=== PATIENT | male | born 1945 | race Caucasian/White ===

== ENCOUNTER 2018-07-02 06:52 | Observation (INO) | payer MEDICARE, OTHER ==
--- NOTE | 2018-07-02 07:23 | ED PDOC ---
Upper Extremity Pain/Injury History Per: Patient Additional Complaint(s): 72M p/w laceration 2 days ago while cutting pears involving RIGHT distal phalanx with development of pain and swelling now involving the first 3 MCPs with edema and erythema. The erythema extending into palmar aspect. He denies any SOB, chest pain, fevers, chills, but has LROM in 1 phalanx. PMD: [place] PMH: Barretts Esophagus <Verónica Shetty - Last Filed: 07/02/18 09:04> <Cr Griggs - Last Filed: 07/02/18 09:26> Time Seen by Provider: 07/02/18 07:07 Supervising Attending Note - Supervising Attending Note The Documented history was done by the: Physician Seismic Observer The documented physical exam was done by the: Physician Seismic Observer The documented procedures were done by the: Physician Seismic Observer - Attestation: I have personally seen and examined this patient.: Yes I have fully participated in the care of the patient.: Yes I have reviewed all pertinent clinical information: Yes - Notes: Notes:: Finger pain post laceration 2 days ago. Limited movement of finger. <Cr Griggs - Last Filed: 07/02/18 09:26> Past Medical History - Family History Family History: States: No Known Family Hx <Verónica Shetty - Last Filed: 07/02/18 09:04> Vital Signs: Last Vital Signs Temp 98.6 F 07/02/18 07:28 Pulse 88 07/02/18 07:28 Resp 18 07/02/18 07:28 BP 158/97 H 07/02/18 07:28 Pulse Ox 99 07/02/18 07:28 <Cr Griggs - Last Filed: 07/02/18 09:26> - Allergies Allergies/Adverse Reactions: Allergies Allergy/AdvReac Type Severity Reaction Status Date / Time No Known Allergies Allergy Verified 07/02/18 07:34 Review of Systems ROS Statement: Except As Marked, All Systems Reviewed And Found Negative Constitutional: Negative for: Fever, Chills Musculoskeletal: Positive for: Hand Pain (Rt index finger with LROM, PIP/MCP edema/erythema as well as index/middle/ring MCP erythema and swelling) <Verónica Shetty - Last Filed: 07/02/18 09:04> Physical Exam - Reviewed Vital Signs Reviewed: Yes - Physical Exam Appears: Positive for: Non-toxic Head Exam: Positive for: ATRAUMATIC, NORMAL INSPECTION Skin: Positive for: Normal Color, Warm, Dry Eye Exam: Positive for: Normal appearance Neck: Positive for: Supple Cardiovascular/Chest: Positive for: Regular Rate, Rhythm Respiratory: Positive for: Normal Breath Sounds. Negative for: Rales, Rhonchi, Wheezing Pulses-Radial (L): 2+ Pulses-Radial (R): 2+ Gastrointestinal/Abdominal: Positive for: Bowel Sounds, Soft. Negative for: Tenderness Extremity: Positive for: Tenderness (Rt second MCP/PIP ), Capillary Refill (<3s), Swelling (Rt second PIP/MCP, 3rd MCP, 4th MCP and erythema into palmar). Negative for: Normal ROM (LROM in Rt second phalanx) Neurologic/Psych: Positive for: global process owner II-XII <Verónica Shetty - Last Filed: 07/02/18 09:04> - Physical Exam Cardiovascular/Chest: Positive for: Regular Rate, Rhythm Respiratory: Positive for: Normal Breath Sounds Pulses-Radial (L): 2+ Pulses-Radial (R): 2+ Extremity: Positive for: Tenderness <Cr Griggs - Last Filed: 07/02/18 09:26> - Laboratory Results Result Diagrams: 07/02/18 07:50 07/02/18 07:50 - Radiology X-Ray: Read By Radiologist (Soft tissue swelling in Rt index finger) - Progress Condition: Re-examined, Improving,but remains with symptoms - Physician Consult Information Time Consulting Physican Contacted: 08:31 Physician Contacted: Jade Bautista Outcome Of Conversation: Admit for IV abx (Unasyn), hand elevation, Surgery Consult 0850: Director Of Pharmacy saw patient. <Verónica Shetty - Last Filed: 07/02/18 09:04> - Laboratory Results Result Diagrams: 07/02/18 07:50 07/02/18 07:50 Interpretation Of Abn Labs: no acute - Progress ED Course And Treament: 924: Stable. AAOx3. Dr. Bautista saw images via text of x-rays and finger. Wants admit. Spoke with Dr. Fisher who will admit. <Cr Griggs - Last Filed: 07/02/18 09:26> Medical Decision Making Medical Decision Making: Possible tenosynovitis - Rt hand 3V - IV Clindamycin - CBC, CMP, BCx, VBG, - Tdap, Toradol - Hand Consult - 1L IVF - Consented patient for pictures/video of hand to discuss with financial analysis consultant. 0821 - CMP all WNL - CBC no leukocytosis/anemia, abs NEUTs 7.7H - Spoke with Hand Specialist and surgical scrub technician <Verónica Shetty - Last Filed: 07/02/18 09:04> Disposition - Disposition Disposition Time: 09:05 <Verónica Shetty - Last Filed: 07/02/18 09:04> <Cr Griggs - Last Filed: 07/02/18 09:26> - Clinical Impression Clinical Impression: Tenosynovitis of finger and hand - Disposition Condition: FAIR
[2018-07-02] MEDS ORDERED: Clindamycin 600mg/50ml NS 600 MG/50 ML BAG IVPB ONE (07:35)
[2018-07-02] MEDS ORDERED: Sodium Chloride 0.9% 1,000 ML IV STA (07:35)
[2018-07-02 08:04] LABS: BASO # 0.1 K/uL (0.0-0.2); BASO % 0.6 % (0.0-2.0); EOS # 0.1 K/uL (0.0-0.7); EOS % 0.8 % (0.0-4.0); HEMOGLOBIN 14.7 g/dL (12.0-18.0); LYMPH # 1.6 K/uL (1.0-4.3); LYMPH % 15.6 % (20.0-40.0); MEAN CELL VOLUME 88.5 fl (80.0-94.0); MEAN CORPUSCULAR HEMOGLOBIN 30.5 pg (27.0-31.0); MEAN CORPUSCULAR HGB CONC 34.4 g/dL (33.0-37.0); MEAN PLATELET VOLUME 8.6 fl (7.2-11.7); MONO # 0.9 K/uL (0.0-0.8); MONO % 8.3 % (0.0-10.0); NEUT # 7.7 K/uL (1.8-7.0); NEUT % 74.7 % (50.0-75.0); NRBC % 0.1 % (0.0-0.0); RBC 4.83 Mil/uL (4.40-5.90); RED CELL DISTRIBUTION WIDTH 13.2 % (11.5-14.5); WHITE BLOOD COUNT 10.4 K/uL (4.8-10.8)
[2018-07-02] MEDS ORDERED: Tdap Vaccine 0.5 ml Vial (10-64 yrs) IM ONE ×2 (08:10→09:49)
[2018-07-02 08:20] LABS: ALB/GLOB RATIO 1.3 (1.0-2.1); ALBUMIN 4.4 g/dL (3.5-5.0); ALT/SGPT 27 U/L (21-72); AST/SGOT 27 U/L (17-59); BLOOD UREA NITROGEN 14 mg/dl (9-20); CALCIUM 9.4 mg/dL (8.4-10.2); GFR NON-AFRICAN AMERICAN > 60
--- NOTE | 2018-07-02 08:36 | RAD ---
PROCEDURE: Right Hand Radiographs. HISTORY: FINGER INFECTION COMPARISON: None. FINDINGS: BONES: There is diffuse bone demineralization. There is no acute fracture or bone destruction. 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 SOFT TISSUES: There is mild diffuse soft tissue swelling in the index finger. OTHER FINDINGS: None. IMPRESSION: No acute fracture, dislocation or radiopaque foreign body. Diffuse soft tissue swelling in the index finger.
--- NOTE | 2018-07-02 09:46 | CP.PCM.CON ---
Addendum entered and electronically signed by Tegan Garduno DO 07/03/18 06:46: Addendum entered and electronically signed by Jade Bautista MD 07/02/18 21:36 : Patient seen tonight after 3 doses of IV antibiotics. The swelling is still present to the index finger on the right hand, but the rest of the fingers are minimally swollen. There is some tenderness to the MCP and PIP joint with both flexion and extension and with grind test. No pain out of proportion with finger extension, no fusiform swelling. Erythema is mild. Laceration healed to the radial boarder at the mid middle phalanx level. Unlikely to develop tenosynovitis, but will follow. Will re-examine tomorrow afternoon. Would recommend adding Toradol and warm compresses. Original Note: History of Present Illness - History of Present Illness History of Present Illness: Hand Surgery consult note for Dr. Bautista Consulted for: right index finger tenosynovitis Patient is a 72 yr old male with PMH GERD and BPH who presents to [facility] ED 2 days after sustaining a small 0.5 cm laceration to his right index finger at the level of the DIP joint on the lateral aspect of the finger while using a paring knife to cut fruit. He initially cleaned the wound and it did not appear to him to need stitches. The wound has now closed. He states that over the past 2 days the finger has become increasingly painful with decreased ROM and exten. He otherwise denies f/c, n/v, CAZARES, CP, SOB, abdominal pain, arm pain or pain in wrist or other fingers. PMH: GERD, BPH PSH: denies All: nkda Review of Systems - Review of Systems All systems: reviewed and no additional remarkable complaints except (as per HPI) Past Patient History - Past Social History Smoking Status: Never Smoked - PSYCHIATRIC Hx Substance Use: No - ANESTHESIA Hx Anesthesia: No Meds Allergies/Adverse Reactions: Allergies Allergy/AdvReac Type Severity Reaction Status Date / Time No Known Allergies Allergy Verified 07/02/18 07:34 - Medications Medications: Current Medications Ampicillin Sodium/Sulbactam (Sodium 1.5 gm/ Sodium Chloride) 100 mls @ 100 mls/hr IVPB ONCE ONE; Protocol Stop: 07/02/18 09:59 Physical Exam - Constitutional Appears: Well, Non-toxic, No Acute Distress - Head Exam Head Exam: ATRAUMATIC, NORMOCEPHALIC - Eye Exam Eye Exam: EOMI - ENT Exam ENT Exam: Mucous Membranes Moist - Respiratory Exam Respiratory Exam: NORMAL BREATHING PATTERN - Cardiovascular Exam Cardiovascular Exam: REGULAR RHYTHM - GI/Abdominal Exam GI & Abdominal Exam: Soft. absent: Guarding, Tenderness - Extremities Exam Extremities exam: Positive for: pedal pulses present. Negative for: calf tenderness, pedal edema Additional comments: right index finger edematous and tender with erythema and warmth extending 2cm into the palm, small closed cut on the lateral DIP joint of the index finger, decreased ROM in index finger and pain with ROM, good capillary refil and intact sensation in the finger - Neurological Exam Neurological exam: Alert, Oriented x3 - Psychiatric Exam Psychiatric exam: Normal Affect, Normal Mood - Skin Skin Exam: Erythema, Warm Additional comments: see extremity exam Results - Vital Signs Recent Vital Signs: Last Vital Signs Temp 98.6 F 07/02/18 07:28 Pulse 88 07/02/18 07:28 Resp 18 07/02/18 07:28 BP 158/97 H 07/02/18 07:28 Pulse Ox 99 07/02/18 07:28 - Labs Result Diagrams: 07/02/18 07:50 07/02/18 07:50 Labs: Laboratory Results - last 24 hr 07/02/18 07/02/18 07:50 07:50 WBC 10.4 RBC 4.83 Hgb 14.7 Hct 42.8 MCV 88.5 MCH 30.5 MCHC 34.4 RDW 13.2 Plt Count 234 MPV 8.6 Neut % (Auto) 74.7 Lymph % (Auto) 15.6 L [place] % (Auto) 8.3 Eos % (Auto) 0.8 Baso % (Auto) 0.6 Neut # (Auto) 7.7 H Lymph # (Auto) 1.6 [place] # (Auto) 0.9 H Eos # (Auto) 0.1 Baso # (Auto) 0.1 Sodium 141 Potassium 4.0 Chloride 104 Carbon Dioxide 24 Anion Gap 17 BUN 14 Creatinine 0.8 Est GFR ( Amer) > 60 Est GFR (Non-Af Amer) > 60 Random Glucose 89 Calcium 9.4 Total Bilirubin 0.9 AST 27 ALT 27 Alkaline Phosphatase 60 Total Protein 7.8 Albumin 4.4 Globulin 3.4 Albumin/Globulin Ratio 1.3 Assessment & Plan - Assessment and Plan (Free Text) Assessment: 72 yr old male with history of recent injury presents with likely tenosynovitis of right index finger Plan: place patient on unasyn for abx keep hand elevated remove rings as necessary continue all home medications all further recs per Dr. Michele Garduno, PGY 1 - Date & Time Date: 07/02/18 Time: 09:00
[2018-07-02 10:10] LABS: VENOUS BLOOD GAS BASE EXCESS 2.3 mmol/L (0.0-2.0); VENOUS BLOOD GAS PCO2 39 mmHg (40-60); VENOUS BLOOD GAS PO2 54 mm/Hg (30-55); VENOUS BLOOD PH 7.44 (7.32-7.43)
--- NOTE | 2018-07-02 11:58 | CP.PCM.HP ---
History of Present Illness - History of Present Illness History of Present Illness: 72 yo male with history of GERD and BPH presented to the ER with pain and swelling of the right index finger extending to its base and palm. He claimed that he accidentally stabbed himself while cutting pears 2 days ago. He noticed his index finger started swelling and was unable to flex later in the day. The next day the swelling extended to the base and palm and started throbbing. He denied fever or chills. He sought consultation to the ER because the redness and swelling was extending and he was unable to make a block paver of the affected hand. Present on Admission - Present on Admission Any Indicators Present on Admission: No History of DVT/PE: No History of Uncontrolled Diabetes: No Urinary Catheter: No Decubitus Ulcer Present: No Review of Systems - Review of Systems All systems: reviewed and no additional remarkable complaints except (aside from those mentioned above, 12 point system review were negative by me) Past Patient History - Tetanus Immunizations Tetanus Immunization: Unknown - Past Medical History & Family History Past Medical History?: Yes Past Family History: Reviewed and not pertinent - Past Social History Smoking Status: Never Smoked Chewing Tobacco Use: No Cigar Use: No Alcohol: Occasional Drugs: Denies Home Situation {Lives}: With Family - GASTROINTESTINAL Hx Gastroesophageal Reflux: Yes - GENITOURINARY/GYNECOLOGICAL Hx Prostate Problems: Yes - PSYCHIATRIC Hx Substance Use: No - ANESTHESIA Hx Anesthesia: No Meds Allergies/Adverse Reactions: Allergies Allergy/AdvReac Type Severity Reaction Status Date / Time No Known Allergies Allergy Verified 07/02/18 07:34 Physical Exam - Constitutional Appears: No Acute Distress - Head Exam Head Exam: ATRAUMATIC - Eye Exam Eye Exam: absent: Scleral icterus - ENT Exam ENT Exam: Mucous Membranes Moist - Neck Exam Neck exam: Negative for: Meningismus - Respiratory Exam Respiratory Exam: absent: Rales, Rhonchi, Wheezes, Respiratory Distress - Cardiovascular Exam Cardiovascular Exam: REGULAR RHYTHM, +S1, +S2 - GI/Abdominal Exam GI & Abdominal Exam: Soft. absent: Tenderness - Rectal Exam Rectal Exam: Deferred - Extremities Exam Extremities exam: Positive for: tenderness (tenderness on right index finger and vicinity). Negative for: full ROM (right fingers with limited ROM particularly the index because of swelling) - Back Exam Back exam: NORMAL INSPECTION - Neurological Exam Neurological exam: Alert, Oriented x3 - Psychiatric Exam Psychiatric exam: Normal Affect - Skin Skin Exam: Dry, Intact Results - Vital Signs Recent Vital Signs: Last Vital Signs Temp 98.6 F 07/02/18 10:10 Pulse 80 07/02/18 10:10 Resp 18 07/02/18 10:10 BP 145/76 07/02/18 10:10 Pulse Ox 100 07/02/18 10:10 - Labs Result Diagrams: 07/02/18 07:50 07/02/18 07:50 Labs: Laboratory Results - last 24 hr 07/02/18 07/02/18 07/02/18 07:34 07:50 07:50 WBC 10.4 RBC 4.83 Hgb 14.7 Hct 42.8 MCV 88.5 MCH 30.5 MCHC 34.4 RDW 13.2 Plt Count 234 MPV 8.6 Neut % (Auto) 74.7 Lymph % (Auto) 15.6 L [place] % (Auto) 8.3 Eos % (Auto) 0.8 Baso % (Auto) 0.6 Neut # (Auto) 7.7 H Lymph # (Auto) 1.6 [place] # (Auto) 0.9 H Eos # (Auto) 0.1 Baso # (Auto) 0.1 pO2 54 VBG pH 7.44 H VBG pCO2 39 L VBG HCO3 26.5 VBG Total CO2 27.7 VBG O2 Sat (Calc) 93.4 H VBG Base Excess 2.3 H VBG Potassium 3.8 Sodium 139.0 141 Chloride 109.0 H 104 Glucose 83 Lactate 0.8 FiO2 21.0 Potassium 4.0 Carbon Dioxide 24 Anion Gap 17 BUN 14 Creatinine 0.8 Est GFR ( Amer) > 60 Est GFR (Non-Af Amer) > 60 Random Glucose 89 Calcium 9.4 Total Bilirubin 0.9 AST 27 ALT 27 Alkaline Phosphatase 60 Total Protein 7.8 Albumin 4.4 Globulin 3.4 Albumin/Globulin Ratio 1.3 Venous Blood Potassium 3.8 Assessment & Plan - Assessment and Plan (Free Text) Assessment: 72 yo male with history of GERD and BPH presented to the ER with pain and swelling of the right index finger extending to its base and palm. He claimed that he accidentally stabbed himself while cutting pears 2 days ago. He noticed his index finger started swelling and was unable to flex later in the day. The next day the swelling extended to the base and palm and started throbbing. He denied fever or chills. He sought consultation to the ER because the redness and swelling was extending and he was unable to make a block paver of the affected hand. 1. Tenosynovitis, Right Index keep right hand elevated continue Unasyn 1.5gm IV q 6hrs hand surgeon on consult
[2018-07-02] MEDS: Pantoprazole 40 mg EC Tab PO SCH (14:07)
[2018-07-03 06:29] LABS: BASO % 0.6 % (0.0-2.0); EOS # 0.2 K/uL (0.0-0.7); EOS % 2.4 % (0.0-4.0); HEMOGLOBIN 13.5 g/dL (12.0-18.0); LYMPH # 1.7 K/uL (1.0-4.3); LYMPH % 21.9 % (20.0-40.0); MEAN CORPUSCULAR HGB CONC 33.4 g/dL (33.0-37.0); MEAN PLATELET VOLUME 8.8 fl (7.2-11.7); MONO # 0.8 K/uL (0.0-0.8); MONO % 10.3 % (0.0-10.0); NEUT # 5.1 K/uL (1.8-7.0); NEUT % 64.8 % (50.0-75.0); RBC 4.51 Mil/uL (4.40-5.90); RED CELL DISTRIBUTION WIDTH 13.1 % (11.5-14.5); WHITE BLOOD COUNT 7.8 K/uL (4.8-10.8)
[2018-07-03 06:31] LABS: INR 1.2; PROTHROMBIN TIME 13.7 Seconds (9.8-13.1)
[2018-07-03 06:49] LABS: BLOOD UREA NITROGEN 16 mg/dl (9-20); CALCIUM 8.8 mg/dL (8.4-10.2); GFR NON-AFRICAN AMERICAN > 60
--- NOTE | 2018-07-03 08:49 | CP.PCM.PN ---
Addendum entered and electronically signed by Jade Bautista MD 07/03/18 17:18: Patient is doing much better after the Toradol and warm compresses. He has very minimal pain and there is still a slight pink discoloration to the volar palm at the index finger, but no pain with passive extension. Not suspicious of tenosynovitis and no need for surgical drainage. He should be able to go home with 5 day of Augmentin. He should continue with the warm compreses for comfort at home. Follow up with me next week. We discussed taking Motrin or Alleve instead of Tylenol for the swelling. The swelling and stiffness to the joints may take 2-3 weeks to resolve and he understands that it will take time but he should use the hand as tolerated without restrictions. Original Note: Subjective - Date & Time of Evaluation Date of Evaluation: 07/03/18 Time of Evaluation: 08:47 - Subjective Subjective: Surgery Pt seen and examined. No acute events/ Doing warm soak. ROM improved. Pain improved. No complaints. Objective - Vital Signs/Intake and Output Vital Signs (last 24 hours): Temp Pulse Resp BP Pulse Ox 98.5 F 75 20 165/81 H 97 07/03/18 08:38 07/03/18 08:38 07/03/18 08:38 07/03/18 08:38 07/03/18 08:38 - Medications Medications: Current Medications Famotidine (Pepcid) 20 mg PO BID [facility] Last Admin: 07/02/18 17:09 Dose: 20 mg Ampicillin Sodium/Sulbactam (Sodium 1.5 gm/ Sodium Chloride) 100 mls @ 100 mls/hr IVPB Q6 [facility]; Protocol Last Admin: 07/03/18 04:24 Dose: 100 mls/hr Ibuprofen (Motrin Tab) 400 mg PO Q6H PRN PRN Reason: Pain, moderate (4-7) Last Admin: 07/03/18 04:29 Dose: 400 mg Ketorolac Tromethamine (Toradol) 10 mg PO 0000,0600,1200,1800 [facility] Last Admin: 07/03/18 06:03 Dose: 10 mg Pantoprazole Sodium (Protonix Ec Tab) 40 mg PO DAILY [facility] Last Admin: 07/02/18 14:07 Dose: 40 mg Sucralfate (Carafate Tab) 1 gm PO TID [facility] Last Admin: 07/02/18 17:10 Dose: 1 gm Tamsulosin HCl (Flomax) 0.4 mg PO BID [facility] Last Admin: 07/02/18 17:10 Dose: 0.4 mg - Labs Labs: 07/03/18 05:40 07/03/18 05:40 PT 13.7 Seconds (9.8-13.1) H 07/03/18 05:40 INR 1.2 07/03/18 05:40 APTT 32.0 Seconds (25.6-37.1) 07/03/18 05:40 - Constitutional Appears: No Acute Distress - Head Exam Head Exam: ATRAUMATIC, NORMAL INSPECTION, NORMOCEPHALIC - Eye Exam Eye Exam: EOMI, Normal appearance, PERRL Pupil Exam: NORMAL ACCOMODATION, PERRL - ENT Exam ENT Exam: Mucous Membranes Moist, Normal Exam - Neck Exam Neck Exam: Full ROM, Normal Inspection. absent: Lymphadenopathy - Respiratory Exam Respiratory Exam: NORMAL BREATHING PATTERN - Cardiovascular Exam Cardiovascular Exam: REGULAR RHYTHM - GI/Abdominal Exam GI & Abdominal Exam: Soft, Normal Bowel Sounds. absent: Distended, Tenderness - Extremities Exam Extremities Exam: absent: Normal Inspection Additional comments: mild swelling is present to the index finger on the right hand, but the rest of the fingers are minimally swollen. There is some tenderness to the MCP and PIP joint with both flexion and extension and with grind test. No pain out of proportion with finger extension, no fusiform swelling. Erythema is mild. Laceration healed to the radial boarder at the mid middle phalanx level. - Back Exam Back Exam: NORMAL INSPECTION - Neurological Exam Neurological Exam: Alert, Awake, CN II-XII Intact, Normal Gait, Oriented x3 - Psychiatric Exam Psychiatric exam: Normal Affect, Normal Mood - Skin Skin Exam: Dry, Erythema, Intact, Warm Assessment and Plan - Assessment and Plan (Free Text) Assessment: R index finger swelling, cellulitis unlikely tenosynovitis -No surgial intervention -Warm compress -Toradol for pain and swelling EZ Bautista
[2018-07-03] MEDS: Pantoprazole 40 mg EC Tab PO SCH (09:03)
--- NOTE | 2018-07-03 09:13 | CP.PCM.PN ---
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 Patient denies fever, chills, N/V/D, headache, rash, abdominal pain or any other acute medical complain at this time. Objective - Vital Signs/Intake and Output Vital Signs (last 24 hours): Temp Pulse Resp BP Pulse Ox 98.5 F 75 20 165/81 H 97 07/03/18 08:38 07/03/18 08:38 07/03/18 08:38 07/03/18 08:38 07/03/18 08:38 - Medications Medications: Current Medications Famotidine (Pepcid) 20 mg PO BID [facility] Last Admin: 07/03/18 09:03 Dose: 20 mg Ampicillin Sodium/Sulbactam (Sodium 1.5 gm/ Sodium Chloride) 100 mls @ 100 mls/hr IVPB Q6 [facility]; Protocol Last Admin: 07/03/18 09:01 Dose: 100 mls/hr Ibuprofen (Motrin Tab) 400 mg PO Q6H PRN PRN Reason: Pain, moderate (4-7) Last Admin: 07/03/18 04:29 Dose: 400 mg Ketorolac Tromethamine (Toradol) 10 mg PO 0000,0600,1200,1800 [facility] Last Admin: 07/03/18 06:03 Dose: 10 mg Pantoprazole Sodium (Protonix Ec Tab) 40 mg PO DAILY [facility] Last Admin: 07/03/18 09:03 Dose: 40 mg Sucralfate (Carafate Tab) 1 gm PO TID [facility] Last Admin: 07/03/18 09:03 Dose: 1 gm Tamsulosin HCl (Flomax) 0.4 mg PO BID [facility] Last Admin: 07/03/18 09:03 Dose: 0.4 mg - Labs Labs: 07/03/18 05:40 07/03/18 05:40 PT 13.7 Seconds (9.8-13.1) H 07/03/18 05:40 INR 1.2 07/03/18 05:40 APTT 32.0 Seconds (25.6-37.1) 07/03/18 05:40 - Additional Findings Additional findings: - Constitutional Appears: No Acute Distress - Head Exam Head Exam: ATRAUMATIC, NORMOCEPHALIC - Eye Exam Eye Exam: EOMI, Normal appearance, PERRL Pupil Exam: EOMI, PERRL - ENT Exam ENT Exam: Mucous Membranes Moist, Normal Exam - Neck Exam Neck Exam: Full ROM, Supple, Normal Inspection. absent: Lymphadenopathy - Respiratory Exam Respiratory Exam: NORMAL BREATHING PATTERN - Cardiovascular Exam Cardiovascular Exam: REGULAR RHYTHM - GI/Abdominal Exam GI & Abdominal Exam: Soft, Normal Bowel Sounds. absent: Distended, Tenderness - Extremities Exam Extremities Exam: absent: Normal Inspection Additional comments: Right index finger with miild swelling that extend to the base of the finger minimally, with mild tenderness to palpation to the MCP joint. There is mild tenderness on ROM, no erythema noted. There is a laceration healing to the radial aspect of the right index finger. minimal function impairment of hand patents examiner. Back Exam Back Exam: NORMAL INSPECTION Assessment and Plan - Assessment and Plan (Free Text) Assessment: 72 yo male with history of GERD and BPH presented to the ER with pain and swelling of the right index finger extending to its base and palm, and diffic ulties with his hand patents examiner due to swelling and pain, evaluated and admitted with diagnosis of Tenosynovitis of the Right index finger. 1. Tenosynovitis, Right Index -keep right hand elevated -continue / Unasyn 1.5gm IV q 6hrs -hand surgeon on consult: Dr Bautista -Ketorolac 10 for inflammation, as per Dr Bautista hand Sx -Ibuprofen 400 PO Q6h PRN pain. -Warm compreses to affected area. 2.GERD -stable -continue home meds, Protonix 3.BPH -stable -Flomax 0.4 PO bid <Deja Gaona - Last Filed: 07/03/18 16:34> Objective - Vital Signs/Intake and Output Vital Signs (last 24 hours): Temp Pulse Resp BP Pulse Ox 98.5 F 75 20 165/81 H 97 07/03/18 08:38 07/03/18 08:38 07/03/18 08:38 07/03/18 08:38 07/03/18 08:38 - Medications Medications: Current Medications Famotidine (Pepcid) 20 mg PO BID [facility] Last Admin: 07/03/18 16:22 Dose: 20 mg Ampicillin Sodium/Sulbactam (Sodium 1.5 gm/ Sodium Chloride) 100 mls @ 100 mls/hr IVPB Q6 [facility]; Protocol Last Admin: 07/03/18 16:22 Dose: 100 mls/hr Ibuprofen (Motrin Tab) 400 mg PO Q6H PRN PRN Reason: Pain, moderate (4-7) Last Admin: 07/03/18 04:29 Dose: 400 mg Ketorolac Tromethamine (Toradol) 10 mg PO 0000,0600,1200,1800 [facility] Last Admin: 07/03/18 12:47 Dose: 10 mg Pantoprazole Sodium (Protonix Ec Tab) 40 mg PO DAILY [facility] Last Admin: 07/03/18 09:03 Dose: 40 mg Sucralfate (Carafate Tab) 1 gm PO TID [facility] Last Admin: 07/03/18 16:22 Dose: 1 gm Tamsulosin HCl (Flomax) 0.4 mg PO BID [facility] Last Admin: 07/03/18 16:22 Dose: 0.4 mg - Labs Labs: 07/03/18 05:40 07/03/18 05:40 PT 13.7 Seconds (9.8-13.1) H 07/03/18 05:40 INR 1.2 07/03/18 05:40 APTT 32.0 Seconds (25.6-37.1) 07/03/18 05:40 Attending/Attestation - Attestation I have personally seen and examined this patient.: Yes I have fully participated in the care of the patient.: Yes I have reviewed all pertinent clinical information, including history, physical exam and plan: Yes
--- NOTE | 2018-07-03 11:18 | CP.PCM.CON ---
Past Patient History - Tetanus Immunizations Tetanus Immunization: Unknown - Past Medical History & Family History Past Medical History?: Yes - Past Social History Smoking Status: Never Smoked - MUSCULOSKELETAL/RHEUMATOLOGICAL Hx Falls: No - GASTROINTESTINAL Hx Gastroesophageal Reflux: Yes - GENITOURINARY/GYNECOLOGICAL Hx Prostate Problems: Yes - PSYCHIATRIC Hx Substance Use: No - ANESTHESIA Hx Anesthesia: No Meds Allergies/Adverse Reactions: Allergies Allergy/AdvReac Type Severity Reaction Status Date / Time No Known Allergies Allergy Verified 07/02/18 07:34 - Medications Medications: Current Medications Famotidine (Pepcid) 20 mg PO BID [facility] Last Admin: 07/03/18 09:03 Dose: 20 mg Ampicillin Sodium/Sulbactam (Sodium 1.5 gm/ Sodium Chloride) 100 mls @ 100 mls/hr IVPB Q6 [facility]; Protocol Last Admin: 07/03/18 09:01 Dose: 100 mls/hr Ibuprofen (Motrin Tab) 400 mg PO Q6H PRN PRN Reason: Pain, moderate (4-7) Last Admin: 07/03/18 04:29 Dose: 400 mg Ketorolac Tromethamine (Toradol) 10 mg PO 0000,0600,1200,1800 [facility] Last Admin: 07/03/18 06:03 Dose: 10 mg Pantoprazole Sodium (Protonix Ec Tab) 40 mg PO DAILY [facility] Last Admin: 07/03/18 09:03 Dose: 40 mg Sucralfate (Carafate Tab) 1 gm PO TID [facility] Last Admin: 07/03/18 09:03 Dose: 1 gm Tamsulosin HCl (Flomax) 0.4 mg PO BID [facility] Last Admin: 07/03/18 09:03 Dose: 0.4 mg Results - Vital Signs Recent Vital Signs: Last Vital Signs Temp 98.5 F 07/03/18 08:38 Pulse 75 07/03/18 08:38 Resp 20 07/03/18 08:38 BP 165/81 H 07/03/18 08:38 Pulse Ox 97 07/03/18 08:38 - Labs Result Diagrams: 07/03/18 05:40 07/03/18 05:40 Labs: Laboratory Results - last 24 hr 07/03/18 07/03/18 07/03/18 05:40 05:40 05:40 WBC 7.8 RBC 4.51 Hgb 13.5 Hct 40.6 MCV 90.0 MCH 30.0 MCHC 33.4 RDW 13.1 Plt Count 205 MPV 8.8 Neut % (Auto) 64.8 Lymph % (Auto) 21.9 [place] % (Auto) 10.3 H Eos % (Auto) 2.4 Baso % (Auto) 0.6 Neut # (Auto) 5.1 Lymph # (Auto) 1.7 [place] # (Auto) 0.8 Eos # (Auto) 0.2 Baso # (Auto) 0.0 PT 13.7 H INR 1.2 APTT 32.0 Sodium 142 Potassium 3.9 Chloride 106 Carbon Dioxide 26 Anion Gap 14 BUN 16 Creatinine 0.9 Est GFR ( Amer) > 60 Est GFR (Non-Af Amer) > 60 Random Glucose 103 Calcium 8.8 Assessment & Plan (1) Multiple pulmonary nodules Status: Chronic Priority: Medium - Date & Time Date: 07/03/18 Time: 11:17
[2018-07-03 16:44] VITALS: BP 166/83; PULSE 69; RESP 18; TEMP 98.3; O2SAT 95
--- NOTE | 2018-07-06 12:21 | CP.PCM.DIS ---
Provider - Provider Date of Admission: 07/02/18 09:19 Attending physician: Jayson Fisher MD Time Spent in preparation of Discharge (in minutes): 33 Diagnosis - Discharge Diagnosis (1) Tenosynovitis of finger and hand Status: Acute Hospital Course - Lab Results Lab Results: Micro Results 07/02/18 07:30 Blood Blood Culture - Preliminary NO GROWTH AFTER 4 DAYS 07/02/18 07:50 Blood Blood Culture - Preliminary NO GROWTH AFTER 4 DAYS Most Recent Lab Values WBC 7.8 K/uL (4.8-10.8) 07/03/18 05:40 RBC 4.51 Mil/uL (4.40-5.90) 07/03/18 05:40 Hgb 13.5 g/dL (12.0-18.0) 07/03/18 05:40 Hct 40.6 % (35.0-51.0) 07/03/18 05:40 MCV 90.0 fl (80.0-94.0) 07/03/18 05:40 MCH 30.0 pg (27.0-31.0) 07/03/18 05:40 MCHC 33.4 g/dL (33.0-37.0) 07/03/18 05:40 RDW 13.1 % (11.5-14.5) 07/03/18 05:40 Plt Count 205 K/uL (130-400) 07/03/18 05:40 MPV 8.8 fl (7.2-11.7) 07/03/18 05:40 Neut % (Auto) 64.8 % (50.0-75.0) 07/03/18 05:40 Lymph % (Auto) 21.9 % (20.0-40.0) 07/03/18 05:40 [place] % (Auto) 10.3 % (0.0-10.0) H 07/03/18 05:40 Eos % (Auto) 2.4 % (0.0-4.0) 07/03/18 05:40 Baso % (Auto) 0.6 % (0.0-2.0) 07/03/18 05:40 Neut # (Auto) 5.1 K/uL (1.8-7.0) 07/03/18 05:40 Lymph # (Auto) 1.7 K/uL (1.0-4.3) 07/03/18 05:40 [place] # (Auto) 0.8 K/uL (0.0-0.8) 07/03/18 05:40 Eos # (Auto) 0.2 K/uL (0.0-0.7) 07/03/18 05:40 Baso # (Auto) 0.0 K/uL (0.0-0.2) 07/03/18 05:40 PT 13.7 Seconds (9.8-13.1) H 07/03/18 05:40 INR 1.2 07/03/18 05:40 APTT 32.0 Seconds (25.6-37.1) 07/03/18 05:40 pO2 54 mm/Hg (30-55) 07/02/18 07:34 VBG pH 7.44 (7.32-7.43) H 07/02/18 07:34 VBG pCO2 39 mmHg (40-60) L 07/02/18 07:34 VBG HCO3 26.5 mmol/L 07/02/18 07:34 VBG Total CO2 27.7 mmol/L (22-28) 07/02/18 07:34 VBG O2 Sat (Calc) 93.4 % (40-65) H 07/02/18 07:34 VBG Base Excess 2.3 mmol/L (0.0-2.0) H 07/02/18 07:34 VBG Potassium 3.8 mmol/L (3.6-5.2) 07/02/18 07:34 Sodium 139.0 mmol/L (132-148) 07/02/18 07:34 Chloride 109.0 mmol/L (98-107) H 07/02/18 07:34 Glucose 83 mg/dL (75-110) 07/02/18 07:34 Lactate 0.8 mmol/L (0.7-2.1) 07/02/18 07:34 FiO2 21.0 % 07/02/18 07:34 Sodium 142 mmol/l (132-148) 07/03/18 05:40 Potassium 3.9 MMOL/L (3.6-5.0) 07/03/18 05:40 Chloride 106 mmol/L (98-107) 07/03/18 05:40 Carbon Dioxide 26 mmol/L (22-30) 07/03/18 05:40 Anion Gap 14 (10-20) 07/03/18 05:40 BUN 16 mg/dl (9-20) 07/03/18 05:40 Creatinine 0.9 mg/dl (0.8-1.5) 07/03/18 05:40 Est GFR ( Amer) > 60 07/03/18 05:40 Est GFR (Non-Af Amer) > 60 07/03/18 05:40 Random Glucose 103 mg/dL (75-110) 07/03/18 05:40 Calcium 8.8 mg/dL (8.4-10.2) 07/03/18 05:40 Total Bilirubin 0.9 mg/dl (0.2-1.3) 07/02/18 07:50 AST 27 U/L (17-59) 07/02/18 07:50 ALT 27 U/L (21-72) 07/02/18 07:50 Alkaline Phosphatase 60 U/L (38-126) 07/02/18 07:50 Total Protein 7.8 G/DL (6.3-8.2) 07/02/18 07:50 Albumin 4.4 g/dL (3.5-5.0) 07/02/18 07:50 Globulin 3.4 gm/dL (2.2-3.9) 07/02/18 07:50 Albumin/Globulin Ratio 1.3 (1.0-2.1) 07/02/18 07:50 Venous Blood Potassium 3.8 mmol/L (3.6-5.2) 07/02/18 07:34 - Hospital Course Hospital Course: 07/03/18 D/C summary: 72 yo male with history of GERD and BPH presented to the ER with pain and swelling of the right index finger extending to its base and palm, and 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 Patient had a significant improvement seen on day 2 day of D/C with minimal swelling and infammation of the affected arae Right index finger noted. Patient was seen by hand surgery Dr Bautista with no surgical intervention needed, and stable to go home on PO antibiotic to conclude treatment and follow up with hand sx as outpatient for re-eval. Patient seen on D/c day stable to go home and finsih treatment as outpatinet, no other acute medical complains at this time, he understands the plan and f/u. Condition on discharge: improved. ED return instructions were given to patient: to return to ED if he notes a regress of symptoms, fever, recurrence of pain or any other concerning symptom. Discharge Exam - Head Exam Head Exam: ATRAUMATIC, NORMAL INSPECTION, NORMOCEPHALIC - Additional Findings Additional findings: This examination corresponds to D/C day on 07/03 - Constitutional Appears: No Acute Distress - Head Exam Head Exam: ATRAUMATIC, NORMOCEPHALIC - Eye Exam Eye Exam: EOMI, Normal appearance, PERRL Pupil Exam: EOMI, PERRL - ENT Exam ENT Exam: Mucous Membranes Moist, Normal Exam - Neck Exam Neck Exam: Full ROM, Supple, Normal Inspection. absent: Lymphadenopathy - Respiratory Exam Respiratory Exam: NORMAL BREATHING PATTERN - Cardiovascular Exam Cardiovascular Exam: REGULAR RHYTHM - GI/Abdominal Exam GI & Abdominal Exam: Soft, Normal Bowel Sounds. absent: Distended, Tenderness - Extremities Exam Extremities Exam: absent: Normal Inspection Additional comments: Right index finger with mild swelling that extend to the base of the finger minimally and almost completely resolved at this point, with mild tenderness to palpation to the MCP joint. There is mild tenderness on ROM, no erythema noted. There is a laceration healing to the radial aspect of the right index finger. minimal function impairment of hand machine i engraver. Discharge Plan - Discharge Medications Prescriptions: Amoxicillin/Clavulanate [Augmentin 875 MG-125 MG] 1 tab PO BID #10 tab Ibuprofen [Motrin Tab] 400 mg PO Q6H PRN #30 tab PRN Reason: Pain, Moderate (4-7) - Follow Up Plan Condition: STABLE Disposition: HOME/ ROUTINE Instructions: Tenosynovitis (DC) Additional Instructions: Warm compress for comfort Ibuprofen for pain and swelling follow up with primary MD 1 week ff up with Dr Bautista in [address] Maxwell in 1-2 wks Referrals: Guilherme Mccauley MD [Family Provider] - Jade Bautista MD [Staff Provider] -
== END 2018-07-03 17:51 | disposition home or self-care (01) ==
LOC: H.ER 06:52 → H.ERHOLD 09:19 → INTOOBSV 09:19 → H.MEDSURG1 10:23
DX: M65.9 Synovitis and tenosynovitis, unspecified (principal); N40.0 Benign prostatic hyperplasia without lower urinary tract symptoms; S61.210A Laceration without foreign body of right index finger without damage to nail, initial encounter; W26.0XXA Contact with knife, initial encounter; M79.89 Other specified soft tissue disorders; K21.9 Gastro-esophageal reflux disease without esophagitis; K22.70 Barrett's esophagus without dysplasia; Z23 Encounter for immunization
CPT/HCPCS: 36415; 73130; 80048; 80053; 82803; 85025; 85610; 85730; 87040; 90471; 90715; 96374; 99284; G0378; J0295; J1885; J7030